=== PATIENT | male | born 1965 ===

== ENCOUNTER 2018-01-06 19:54 | Inpatient (IN) | payer MEDICAID ==
[2018-01-06 20:17] VITALS: BMI 26.6
--- NOTE | 2018-01-06 20:23 | C.PDOC ---
History Of Present Illness Patient presents as a transfer for detox admission from [facility] where he was medically cleared. Patient was accepted by Dr. Burger. Denies medical complaints at this time. Time Seen by Provider: 01/06/18 20:21 Chief Complaint (Nursing): Psychiatric Evaluation History Per: Patient History/Exam Limitations: no limitations Onset/Duration Of Symptoms: Days Current Symptoms Are (Timing): Still Present Modifying Factor(s): None Severity: None Pain Scale Rating Of: 0 Associated Symptoms: denies: Depression, Suicidal Thoughts Involuntary Hold By: None Recent travel outside of the [place]: No Past Medical History Reviewed: Historical Data, Nursing Documentation, Vital Signs Vital Signs: Last Vital Signs Temp 98.8 F 01/06/18 20:07 Pulse 66 01/06/18 20:07 Resp 18 01/06/18 20:07 BP 166/111 H 01/06/18 20:07 Pulse Ox 99 01/06/18 20:35 Surgical History: No Surg Hx Family History: States: No Known Family Hx - Social History Hx Alcohol Use: Yes Hx Substance Use: No - Immunization History Hx Tetanus Toxoid Vaccination: No Hx Influenza Vaccination: No Hx Pneumococcal Vaccination: No Review Of Systems Constitutional: Negative for: Fever, Chills Cardiovascular: Negative for: Chest Pain Respiratory: Negative for: Shortness of Breath, Wheezing Gastrointestinal: Negative for: Nausea, Vomiting Neurological: Negative for: Weakness, Numbness Psych: Negative for: Suicidal ideation Physical Exam - Physical Exam Appears: Non-toxic Skin: Warm, Dry Head: Normacephalic Oral Mucosa: Moist Neck: Trachea Midline, Supple Chest: Symmetrical, No Tenderness Cardiovascular: Rhythm Regular Respiratory: No Rales, No Rhonchi, No Wheezing Gastrointestinal/Abdominal: Soft, No Tenderness, No Distention Neurological/Psych: Oriented x3 Gait: Steady ED Course And Treatment O2 Sat by Pulse Oximetry: 99 (RA) Pulse Ox Interpretation: Normal Disposition Discussed With : Srikanth Burger Comment: accepted the pt on his service and took over the care at 8:22 PM Doctor Will See Patient In The: Hospital Counseled Patient/Family Regarding: Studies Performed, Diagnosis - Disposition Disposition: HOSPITALIZED Disposition Time: 20:23 Condition: FAIR Forms: [facility] (Faroese) - POA Present On Arrival: None - Clinical Impression Clinical Impression: Alcohol abuse - Scribe Statement The provider has reviewed the documentation as recorded by the Scribe Sahib Epi Provider Attestation: All medical record entries made by the Eddie were at my direction and personally dictated by me. I have reviewed the chart and agree that the record accurately reflects my personal performance of the history, physical exam, medical decision making, and the department course for this patient. I have also personally directed, reviewed, and agree with the discharge instructions and disposition. Decision To Admit - Pt Status Changed To: Hospital Disposition Of: Inpatient - Admit Certification Admit to Inpatient:: After my assessment, the patient will require hospitalization for at least two midnights. This is because of the severity of symptoms shown, intensity of services needed, and/or the medical risk in this patient being treated as an outpatient. - InPatient: Physician Admission Certification: I certify that this patient requires 2 or more midnights of care for the following reason:: After my assessment, the patient will require hospitalization for at least two midnights. This is because of the severity of symptoms shown, intensity of services needed, and/or the medical risk in this patient being treated as an outpatient. - . Bed Request Type: Detox Admitting Physician: Srikanth Burger Patient Diagnosis: Alcohol abuse
--- NOTE | 2018-01-06 20:53 | PCM.BM ---
<Radhames Loving - Last Filed: 01/06/18 20:52> Treatment Plan Problems - Problems identified on initial assessmt potential for alcohol withdrawal Date Initiated: 01/06/18 Time Initiated: 20:53 Status: Active Treatment assets and liabiliti Patient Liabilities: substance abuse, medical problems - Milieu Protocol Maintain good personal hygiene: daily Encourage regular showers, daily Remind patient to perform daily oral care, daily Assist patient to perform ADL's Conduct patient checks and document Observation sheet: Q15 minutes Maintain personal safety: every shift Educate patient to report safety concerns to staff, every shift Monitor environment for contraband/sharps Medication safety: Monitor for expected outcome, potential side effects: every shift, Assess barriers to learning: every shift, Assess readiness for medication education: every shift <Srikanth Burger - Last Filed: 01/07/18 15:42> - Diagnosis (1) Alcohol use disorder, severe, dependence Status: Acute Interventions: 01/07/18 15:42 * Assess 7x/week regarding severity of withdrawal * Educate regarding risks, benefits, side effects and alternatives of medications * Use Motivational Interviewing for abstinence * Use CBT for relapse prevention * Medication management for withdrawal symptoms * Encourage medication assisted treatment *
[2018-01-07] MEDS: Multiple Vitamins Tab PO SCH (10:27)
--- NOTE | 2018-01-07 15:00 | PCM.PSYCH ---
Initial Psychiatric Evaluation - Initial Psychiatric Evaluation Type of Admission: Voluntary Legal Status: Capacity Chief Complaint (in patient's own words): "Alcohol" History of Present Illness and Precipitating Events: Pt is seen, chart reviewed, case discussed. Pt is a 52 y/o male that was transferred from [facility] in [place], [place]. He is but , currently homeless but plans on living with his brother, has 2 step kids. 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 He presents with a history of alcohol abuse. Pt states that he drinks a quart of vodka everyday, he also says that he will go on binges for days where he'll eat nothing during this time and only drink. He minimizes the effect of alcohol but he had significant withdrawal symptoms on arrival. He was nervous about taking librium as he said he doesn't like taking meds. He has had complicated withdrawals at times but no DTs Denies any drug usage. He smokes 1-2 packs of cigarettes a day but refused patch Denies any medical or psych problems, denies past seizures Says that his dad and sister have problems with alcoholism. Current Medications: Active Medications Generic Name Dose Route Start Last Admin Trade Name Freq PRN Reason Stop Dose Admin Chlordiazepoxide 25 mg 01/07/18 00:00 01/07/18 12:20 Librium PO 01/11/18 23:59 25 mg Q6H LUKE Administration Taper Chlordiazepoxide 25 mg 01/07/18 08:58 01/07/18 10:26 Librium PO 25 mg Q4H PRN Administration Alcohol Withdrawal Clonidine HCl 0.1 mg 01/06/18 22:26 Catapres PO Q4H PRN Symptoms of alcohol withdrawl Folic Acid 1 mg 01/07/18 10:00 01/07/18 10:27 Folic Acid PO 1 mg DAILY LUKE Administration Gabapentin 300 mg 01/07/18 10:00 01/07/18 10:26 Neurontin PO 300 mg BID LUKE Administration Hydroxyzine HCl 50 mg 01/06/18 22:29 Atarax PO Q6H PRN Anxiety Multivitamins 1 tab 01/07/18 10:00 01/07/18 10:27 Hexavitamin PO 1 tab DAILY LUKE Administration Nicotine 1 patch 01/07/18 10:00 01/07/18 10:28 Nicoderm Cq TD Not Given DAILY LUKE Thiamine HCl 100 mg 01/07/18 10:00 01/07/18 10:27 Vitamin B1 Tab PO 100 mg DAILY LUKE Administration Trazodone HCl 50 mg 01/06/18 22:26 Desyrel PO HS PRN Insomnia Past Psychiatric History - Past Psychiatric History Previous Treatment History: None Pertinent Medical Hx (Current Medical&Sleep Prob, Allergies): Allergies Allergy/AdvReac Type Severity Reaction Status Date / Time No Known Allergies Allergy Verified 01/06/18 20:05 Review of Systems - Neurological Neurological: UNREMARKABLE - Psychiatric Psychiatric: Abnormal Sleep Pattern, Anhedonia, Anxiety, Change in Appetite, Depression, Difficulty Concentrating, Irritability. absent: Hallucinations, Homicidal Ideation, Paranoia, Suicidal Ideation Mental Status Examination - Personal Presentation Personal Presentation: Looks older than stated age - Affect Affect: Constricted - Motor Activity Motor Activity: Calm - Reliability in Providing Information Reliability in Providing Information: Good - Speech Speech: Organized - Mood Mood: Depressed, Anxious - Formal Thought Process Formal Thought Process: No Impairment - Cognitive Functions Orientation: Person, Place, Situation, Time Sensorium: Alert Attention/Concentration: Easily distracted Abstract Thinking: [place] Estimate of Intelligence: Average Judgement: Imparied, as evidence by: Poor judgement (refusing meds sometimes), Intact, as evidence by: Insight regarding need for hospitalization Memory: Recent intact, as evidence by: Ability to recall events of the day, Remote impaired as evidenced by: Inability to recall sig life events - Risk Risk: Seizure, Withdrawal, Diminished functioning - Strength & Assets Inventory Strength & Assets Inventory: Cooperative - Limitations Limitations: Living alone DSM 5 DX - DSM 5 DSM 5 Diagnosis: Alcohol withdrawal Alcohol use disorder, severe Tobacco use disorder, severe Substance-induced depression - Recommended/Plan of Treatment Treatment Recommendations and Plan of Treatment: Taper with librium As needed medications All risks, benefits and alternatives of the meds discussed, and the pt agreed and understood. Attend groups and activities Individual therapy daily Psychoeducation and support daily Encourage compliance with meds and after care Refer to rehab or IOP, and self-help groups Nicotine patch if needed 34 min Projected ELOS: 4-5 days Prognosis: good with treatment - Smoking Cessation Smoking Cessation Initiated: Yes
[2018-01-08] MEDS: Multiple Vitamins Tab PO SCH (10:46)
--- NOTE | 2018-01-08 12:21 | PCM.PYCHPN ---
Psychiatric Progress Note - Psychiatric Progress Note Patient seen today, length of contact: 17 min Patient Chief Complaint: "Medication makes me shake" Medical Problems: The pt is seen, chart reviewed, case discussed with staff. The pt is somewhat compliant with medications and reports no side-effects. Librium is switched to ativan, dianne dc'ed Symptoms are improving but needs more time to stabilize. After care discussed, support and psychoeducation given. Medication Change: Yes (detox adjusted) Medical Record Reviewed: Yes Mental Status Examination - Cognitive Function Orientation: Person, Place, Situation, Time Memory: Impaired Attention: WNL Concentration: Poor Association: WNL Fund of Knowledge: WNL - Mood Mood: Depressed, Anxious - Affect Affect: Constricted - Speech Speech: Appropriate - Formal Thought Process Formal Thought Process: No Impairment - Suicidal Ideation Suicidal Ideation: No - Homicidal Ideation Homicidal Ideation: No Goal/Treatment Plan - Goal/Treatment Plan Need for Continued Stay: Discharge may exacerbated symptoms, Severe functional impairment Progress Toward Problem(s) and Goals/Treatment Plan: Taper with librium As needed medications All risks, benefits and alternatives of the meds discussed, and the pt agreed and understood. Including risks during Attend groups and activities Individual therapy daily Psychoeducation and support daily Encourage compliance with meds and after care Refer to rehab or IOP, and self-help groups Nicotine patch
[2018-01-09] MEDS: Multiple Vitamins Tab PO SCH (09:36)
[2018-01-09 09:56] VITALS: RESP 18; O2SAT 98
--- NOTE | 2018-01-09 11:47 | PCM.PYCHPN ---
Psychiatric Progress Note - Psychiatric Progress Note Patient seen today, length of contact: 17 min Patient Chief Complaint: I am feeling better.;'' Problems Identified/Issues Discussed: Patient seen and evaluated, chart reviewed and discussed with the nurse. He reports improvement in his depressed mood and irritability. He reports improvement in the withdrawal symptoms. He denies any AVH or any paranoia. Patient is compliant with medications and denies any side effects. Symptoms are improving but need more time to stabilize. Support and psychoeducation given. Medication Change: Yes (detox adjusted) Medical Record Reviewed: Yes Mental Status Examination - Cognitive Function Orientation: Person, Place, Situation, Time Memory: Impaired Attention: WNL Concentration: Poor Association: WNL Fund of Knowledge: WNL - Mood Mood: Depressed, Anxious - Affect Affect: Constricted - Speech Speech: Appropriate - Formal Thought Process Formal Thought Process: No Impairment - Suicidal Ideation Suicidal Ideation: No - Homicidal Ideation Homicidal Ideation: No Goal/Treatment Plan - Goal/Treatment Plan Need for Continued Stay: Discharge may exacerbated symptoms, Severe functional impairment Progress Toward Problem(s) and Goals/Treatment Plan: Taper with librium As needed medications All risks, benefits and alternatives of the meds discussed, and the pt agreed and understood. Including risks during Attend groups and activities Individual therapy daily Psychoeducation and support daily Encourage compliance with meds and after care Refer to rehab or IOP, and self-help groups Nicotine patch
[2018-01-09 14:44] VITALS: BP 127/81; PULSE 80; TEMP 98.9
--- NOTE | 2018-01-09 17:52 | PCM.PYCHDC ---
Mental Status Examination - Mental Status Examination Orientation: Person, Place, Situation, Time Memory: Impaired Mood: Anxious Affect: Constricted Speech: Appropriate Attention: WNL Concentration: WNL Association: WNL Fund of Knowledge: WNL Formal Thought Process: No Impairment Suicidal Ideation: No Current Homicidal Ideation?: No Discharge Summary - Discharge Note Reason for Hospitalization: Alcohol detox Consultations:: List each consultation separately and include: 1. Reason for request. 2. Findings. 3. Follow-up Summary of Hospital Course include:: 1. Description of specific treatment plan utilized for patients during their course of treatmen. 2. Summarize the time- course for resolution of acute symptoms and/or regressed behaviors. 3. Describe issues identified and worked on during hospitalization. 4. Describe medication utilized. 5. Describe medical problems identified and treated. 6. Reassessment of suicide risk Summary of Hospital Course: On admission: Pt is seen, chart reviewed, case discussed. Pt is a 52 y/o male that was transferred from [facility] in [place], [place]. He is but , currently homeless but plans on living with his brother, has 2 step kids. 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 He presents with a history of alcohol abuse. Pt states that he drinks a quart of vodka everyday, he also says that he will go on binges for days where he'll eat nothing during this time and only drink. He minimizes the effect of alcohol but he had significant withdrawal symptoms on arrival. He was nervous about taking librium as he said he doesn't like taking meds. He has had complicated withdrawals at times but no DTs Denies any drug usage. He smokes 1-2 packs of cigarettes a day but refused patch Denies any medical or psych problems, denies past seizures Says that his dad and sister have problems with alcoholism. Hospital course: The pt was admitted and started on treatment with psychotherapy, support, psychoeducation and medications. [place] and CBT used. The pt attended groups and activities, as well as milieu therapy. All the risks and benefits of medications are discussed and the patient understood and agreed. The pt improved with the treatments provided. After care discussed with the patient. Pt left 1/2 day early; he was supposed to be discharged tomorrow morning. However, since the day he came he had very low motivation, he did not believe he needed detox, even refused meds at times. His insight into alcoholism is also shaky. He then asked his ex- to come to pick him up tonight. Risks discussed, he understood but still left. Luckily, our counselors scored a bed for him for tomorrow at [facility]. - Final Diagnosis (DSM 5) Condition upon Discharge: IMPROVED DSM 5: Alcohol withdrawal Alcohol use disorder, severe Tobacco use disorder, severe Substance-induced depression Disposition: HOME/ ROUTINE Follow-up Treatment Plan: He did not want meds, in fact he was against them all Follow after care plan as discussed. Use relapse prevention skills Return to ER or call 911 if suicidal, homicidal or symptoms relapse. Stay away from stress, alcohol and drugs. See primary doctor regularly and get labs.
== END 2018-01-09 16:31 | disposition home or self-care (01) | DRG 751 ==
LOC: C.ER 19:54 → C.7D 20:21
PROVIDERS: ADMIT Psychiatry & Neurology Psychiatry; ATTEND Psychiatry & Neurology Psychiatry
PROC: HZ2ZZZZ Detoxification Services for Substance Abuse Treatment (ICD-10-PCS; principal; 2018-01-06)
PROC: HZ59ZZZ Individual Psychotherapy for Substance Abuse Treatment, Supportive (ICD-10-PCS; 2018-01-06)
PROC: HZ46ZZZ Group Counseling for Substance Abuse Treatment, Psychoeducation (ICD-10-PCS; 2018-01-06)
PROC: GZ3ZZZZ Medication Management (ICD-10-PCS; 2018-01-06)
DX: F10.230 Alcohol dependence with withdrawal, uncomplicated (principal); F32.9 Major depressive disorder, single episode, unspecified; F17.210 Nicotine dependence, cigarettes, uncomplicated; Z59.0 Homelessness

== ENCOUNTER 2018-01-11 11:05 | Emergency (ER) | payer MEDICAID ==
[2018-01-11 11:06] VITALS: BMI 26.6
[2018-01-11 11:23] VITALS: RESP 16; TEMP 98.8
--- NOTE | 2018-01-11 12:08 | C.PDOC ---
History Of Present Illness 52 year old male presents to the ED requesting alcohol detox. Patient states he was recently admitted to a facility in [place] but he left because it was not clean. He reports last alcohol consumption was last night. He denies any SI/HI, chest pain, SOB, depression, or any other symptoms. Time Seen by Provider: 01/11/18 11:51 Chief Complaint (Nursing): Substance Abuse History Per: Patient History/Exam Limitations: no limitations Onset/Duration Of Symptoms: Days Current Symptoms Are (Timing): Still Present Suicide/Self Injury Attempted (Context): None Modifying Factor(s): Alcohol Associated Symptoms: denies: Depression, Suicidal Thoughts Past Medical History Reviewed: Historical Data, Nursing Documentation, Vital Signs Vital Signs: Last Vital Signs Temp 98.8 F 01/11/18 11:17 Pulse 92 H 01/11/18 11:17 Resp 16 01/11/18 11:17 BP 116/78 01/11/18 11:17 Pulse Ox 100 01/11/18 12:08 - Medical History PMH: No Chronic Diseases Other Surgeries: Hx of surgeries - [facility] DETOXIFICATION SERVICES FOR SUBSTANCE ABUSE TREATMENT (01/06/18) GROUP MANAGER USER EXPERIENCE FOR SUBSTANCE ABUSE TREATMENT, PSYCHOEDUCATION (01/06/18) INDIV PSYCHOTHERAPY FOR SUBSTANCE ABUSE TREATMENT, SUPPORT (01/06/18) MEDICATION MANAGEMENT (01/06/18) Family History: States: No Known Family Hx - Social History Hx Alcohol Use: Yes Hx Substance Use: No - Immunization History Hx Tetanus Toxoid Vaccination: No Hx Influenza Vaccination: No Hx Pneumococcal Vaccination: No Review Of Systems Except As Marked, All Systems Reviewed And Found Negative. Physical Exam - Physical Exam Appears: Non-toxic, No Acute Distress Skin: Warm, Dry Head: Atraumatic, Normacephalic Eye(s): bilateral: Normal Inspection Nose: Normal Oral Mucosa: Moist Neck: Supple Chest: Symmetrical Cardiovascular: Rhythm Regular, No Murmur Respiratory: Normal Breath Sounds, No Rales, No Rhonchi, No Wheezing Extremity: Bilateral: Atraumatic, Normal Color And Temperature, Normal ROM Neurological/Psych: Oriented x3, Normal Speech Gait: Steady ED Course And Treatment O2 Sat by Pulse Oximetry: 100 (RA) Pulse Ox Interpretation: Normal Medical Decision Making Medical Decision Making: Impression: Alcohol abuse Spoke with Crisis. There are no beds available. Patient given referral list. Patient ready for discharge. Disposition Counseled Patient/Family Regarding: Diagnosis, Need For Followup - Disposition Referrals: [facility] [Outside] Disposition: HOME/ ROUTINE Disposition Time: 12:07 Condition: STABLE Additional Instructions: follow up with referral list for detox within 2 days call to make an appointment take medications as prescribed return to ER if symptoms worsens or progress Instructions: Alcohol Abuse and Alcoholism (DC) Forms: [facility] (Greenlandic), General Discharge Instructions - Clinical Impression Clinical Impression: Alcohol abuse - Scribe Statement The provider has reviewed the documentation as recorded by the Scribminor Johnson All medical record entries made by the Daveibminor were at my direction and personally dictated by me. I have reviewed the chart and agree that the record accurately reflects my personal performance of the history, physical exam, medical decision making, and the department course for this patient. I have also personally directed, reviewed, and agree with the discharge instructions and disposition.
[2018-01-11 12:44] VITALS: BP 118/73; PULSE 90; O2SAT 99
== END 2018-01-11 12:44 | disposition home or self-care (01) ==
LOC: C.ER 11:05
DX: F10.10 Alcohol abuse, uncomplicated (principal); Y90.9 Presence of alcohol in blood, level not specified